=== PATIENT | male | born 2000 | race Caucasian/White ===

== ENCOUNTER 2023-05-21 12:31 | Emergency (ER) | payer BC ==
[2023-05-21 13:08] LABS: Absolute Lymphocytes (CBC) 1.6 K/uL (0.7-4.9); Hematocrit 51.4 % (39.6-49.0); Lymphocytes % 14.3 % (15.3-44.8); MCV 87.1 fL (80-100); MPV 8.2 fL (7.6-11.3); Platelets 265 thou/uL (152-406); RBC Red Blood Cell Count 5.89 M/uL (4.33-5.43)
[2023-05-21 13:23] LABS: Albumin 4.2 g/dL (3.4-5.0); Bilirubin Total 0.5 mg/dL (0.2-1.0); Potassium 3.6 mEq/L (3.5-5.1); Protein, Total 7.8 g/dL (6.4-8.2)
[2023-05-21] MEDS ORDERED: FAMOTIDINE 20 MG/2 ML VIAL IV ONE (13:33)
[2023-05-21] MEDS ORDERED: NA CHLORIDE 0.9% 1,000 ML ONE (13:33)
[2023-05-21] MEDS ORDERED: ONDANSETRON 4 MG/2 ML VIAL ONE (13:33)
[2023-05-21] MEDS ORDERED: KETOROLAC 30 MG/ML INJ ONE (13:33)
--- NOTE | 2023-05-21 14:17 | RAD REPORT ---
EXAM DESCRIPTION: US - Abdomen Exam Limited - 05/21/2023 1:16 pm CLINICAL HISTORY: pain COMPARISON: No comparisons TECHNIQUE: Sonographic grayscale and color flow images of the right upper abdominal quadrant were obtained. FINDINGS: The gallbladder demonstrates no gallstones, but layering hyperechoic foci. No pericholecys tic fluid or gallbladder wall thickening. The common bile duct is prominent measuring 7 millimeter. The liver demonstrates no findings of intrahepatic biliary dilatation. IMPRESSION: Gallbladder sludge, may contain tiny calculi. Prominence of the common bile duct measuring 7 millimeter, without intrahepatic biliary ductal dilati on or sonographic evidence of choledocholithiasis. Please correlate with bilirubin levels.
--- NOTE | 2023-05-21 16:08 | ER ---
Nurse's Notes [facility] Name: Kermit Bello Age: 23 yrs Sex: Male : 2000 Arrival Date: 05/21/2023 Time: 12:31 Bed 13 Private MD: Diagnosis: Upper abdominal pain, unspecified Presentation: 05/21 12:43 Chief complaint: Patient states: "I have this stabbing pain in my upper abdomen, and mb9 N/V that started last Tuesday. I went to [facility] and they didn't find anything". Coronavirus screen: Vaccine status: Patient reports being unvaccinated. Ebola Screen: No symptoms or risks identified at this time. Initial Sepsis Screen: Does the patient meet any 2 criteria? No. Patient's initial sepsis screen is negative. Does the patient have a suspected source of infection? No. Patient's initial sepsis screen is negative. Risk Assessment: Do you want to hurt yourself or someone else? Patient reports no desire to harm self or others. Onset of symptoms was May 21, 2023. 12:43 Method Of Arrival: Ambulatory mb9 12:43 Acuity: JARETH 3 mb9 Triage Assessment: 12:44 General: Appears in no apparent distress. Behavior is calm, cooperative. Pain: mb9 Complains of pain in abdomen Pain does not radiate. Pain currently is 10 out of 10 on a pain scale. Quality of pain is described as pressure, throbbing, Pain began suddenly. Neuro: [place] Cruz Agitation-Sedation Scale (RASS): 0 - Alert and Calm Level of Consciousness is awake, alert, obeys commands, Oriented to person, place, time, situation, Appropriate for age. Cardiovascular: Patient's skin is warm and dry. Respiratory: Airway is patent Respiratory effort is even, unlabored, Respiratory pattern is regular, symmetrical, Breath sounds are clear bilaterally. GI: Abdomen is round non-distended, Reports nausea, vomiting. Derm: Skin is pink, warm \\T\\ dry. Musculoskeletal: Range of motion: intact in all extremities. Historical: - Allergies: 12:44 No Known Allergies; mb9 - Home Meds: 12:44 None [Active]; mb9 - PMHx: 12:44 None; mb9 - PSHx: 12:44 None; mb9 - Immunization history:: Adult Immunizations up to date. - Social history:: Smoking status: Patient denies any tobacco usage or history of. Screenin:37 [facility] ED Fall Risk Assessment (Adult) History of falling in the last 3 months, kc6 including since admission No falls in past 3 months (0 pts) Confusion or Disorientation No (0 pts) Intoxicated or Sedated No (0 pts) Impaired Gait No (0 pts) Mobility Assist Device Used No (0 pt) Altered Elimination No (0 pt) Score/Fall Risk Level 0 - 2 = Low Risk. Abuse screen: Denies threats or abuse. Denies injuries from another. Nutritional screening: No deficits noted. Tuberculosis screening: No symptoms or risk factors identified. Assessment: 13:35 General: Appears in no apparent distress. uncomfortable, Behavior is calm, cooperative, kc6 appropriate for age. Pain: Complains of pain in epigastric area, right upper quadrant and left upper quadrant Pain does not radiate. Neuro: Level of Consciousness is awake, alert, obeys commands, Oriented to person, place, time, situation, Appropriate for age. Cardiovascular: Capillary refill < 3 seconds. Respiratory: Airway is patent Trachea midline Respiratory effort is even, unlabored, Respiratory pattern is regular, symmetrical. GI: Abdomen is flat, non-distended, Last BM was May 14, 2023. Bowel sounds present X 4 quads. Abd is soft X 4 quads Abdomen is tender to palpation in epigastric area, right upper quadrant and left upper quadrant Reports constipation, nausea, vomiting, Patient currently denies diarrhea. : No signs and/or symptoms were reported regarding the genitourinary system. EENT: No signs and/or symptoms were reported regarding the EENT system. Derm: No signs and/or symptoms reported regarding the dermatologic system. Skin is intact, is healthy with good turgor, Skin is pink, warm \\T\\ dry. Musculoskeletal: No signs and/or symptoms reported regarding the musculoskeletal system. Circulation, motion, and sensation intact. Capillary refill < 3 seconds, Range of motion: intact in all extremities. 14:43 Reassessment: Patient appears in no apparent distress at this time. No changes from kc6 previously documented assessment. Patient and/or family updated on plan of care and expected duration. Pain level reassessed. Patient is alert, oriented x 3, equal unlabored respirations, skin warm/dry/pink. 15:30 Reassessment: Patient appears in no apparent distress at this time. No changes from kc6 previously documented assessment. Patient and/or family updated on plan of care and expected duration. Pain level reassessed. Patient is alert, oriented x 3, equal unlabored respirations, skin warm/dry/pink. Vital Signs: 12:43 BP 164 / 101; Pulse 81; Resp 18; Temp 98.5; Pulse Ox 100% on R/A; Weight 99.79 kg; mb9 Height 6 ft. 0 in. ; Pain 10/10; 13:37 BP 152 / 95; Pulse 61; Resp 18 S; Pulse Ox 100% on R/A; kc6 14:43 BP 142 / 71; Pulse 64; Resp 16 S; Pulse Ox 100% on R/A; kc6 15:30 BP 135 / 70; Pulse 61; Resp 16 S; Pulse Ox 100% on R/A; kc6 12:43 Body Mass Index 29.84 (99.79 kg, 182.88 cm) mb9 12:43 Pain Scale: Adult mb9 ED Course: 12:33 Patient arrived in ED. ts1 12:40 Aleisha Escudero [facility]-C [facility]. kb 12:40 Jose Espinosa MD is Attending Physician. kb 12:44 Triage completed. mb9 12:44 Arm band placed on. mb9 12:59 Amanda Drake, RN is Primary Nurse. kc6 13:00 Inserted saline lock: 20 gauge in right forearm, using aseptic technique. Blood ds4 collected. 13:18 Abdomen Exam Limited In Process Unspecified. EDMS 13:37 Patient has correct armband on for positive identification. Bed in low position. Call kc6 light in reach. Side rails up X 1. 16:23 No provider procedures requiring assistance completed. IV discontinued, intact, kc6 bleeding controlled, No redness/swelling at site. Pressure dressing applied. Administered Medications: 13:34 Drug: NS 0.9% IV 1000 ml Route: IV; Rate: 1 bolus; Site: right forearm; kc6 15:24 Follow up: Response: No adverse reaction; IV Status: Completed infusion; IV Intake: kc6 1000ml 13:34 Drug: TORadol - Ketorolac IVP 15 mg Route: IVP; Site: right forearm; kc6 15:24 Follow up: Response: No adverse reaction; Pain is decreased kc6 13:34 Drug: Ondansetron IVP 4 mg Route: IVP; Site: right forearm; kc6 15:24 Follow up: Response: No adverse reaction; Nausea is decreased kc6 13:35 Drug: Famotidine IVP 20 mg Route: IVP; Site: right forearm; kc6 15:24 Follow up: Response: No adverse reaction kc6 Medication: 16:23 VIS not applicable for this client. kc6 Intake: 15:24 IV: 1000ml; Total: 1000ml. kc6 Outcome: 16:07 Discharge ordered by . brianne 16:23 Discharged to home ambulatory. kc6 16:23 Condition: improved 16:23 Discharge instructions given to patient, Instructed on discharge instructions, follow up and referral plans. medication usage, Demonstrated understanding of instructions, follow-up care, medications, Prescriptions given X 2. 16:23 Patient left the ED. kc6 Signatures: Dispatcher [employer] EDMS Aleisha Escudero, JOVANNIC [employer] PRESS OPERATOR-CkEduardo Nieves ds4 Amanda Drake RN RN kc6 Devorah Luna RN RN mb9 Katerin Sosa, PAS PAS ts1 Corrections: (The following items were deleted from the chart) 12:45 12:43 Pulse 81bpm; Resp 18bpm; Pulse Ox 100% RA; Temp 98.5F; 99.79 kg; Height 6 ft. 0 mb9 in.; BMI: 29.8; Pain 10/10, Adult; mb9
--- NOTE | 2023-05-21 16:08 | EDPHYS ---
Physician Documentation [facility] Name: Kermit Bello Age: 23 yrs Sex: Male : 2000 Arrival Date: 05/21/2023 Time: 12:31 Bed 13 Private MD: ED Physician Jose Espinosa HPI: 05/21 13:52 This 23 yrs old Male presents to ER via Ambulatory with complaints of Abdominal Pain, kb Stabbing pain in upper stomach. 13:52 The patient presents with abdominal pain in the upper abdomen. Onset: The kb symptoms/episode began/occurred 1 week(s) ago. The symptoms do not radiate. Associated signs and symptoms: Pertinent positives: nausea and vomiting, Pertinent negatives: diarrhea, fever. The symptoms are described as sharp. Modifying factors: The symptoms are alleviated by nothing, the symptoms are aggravated by nothing. Severity of pain: At its worst the pain was moderate in the emergency department the pain is unchanged. The patient has not experienced similar symptoms in the past. The patient has been recently seen by a physician:. 13:54 Pt reports upper abd pain for one week. Was seen at [place] [facility] 5 days ago for similar kb symptoms and discharged home. . Historical: - Allergies: 12:44 No Known Allergies; mb9 - Home Meds: 12:44 None [Active]; mb9 - PMHx: 12:44 None; mb9 - PSHx: 12:44 None; mb9 - Immunization history:: Adult Immunizations up to date. - Social history:: Smoking status: Patient denies any tobacco usage or history of. ROS: 13:52 Constitutional: Negative for fever, chills, and weight loss. kb 13:52 Abdomen/GI: Positive for abdominal pain, nausea and vomiting. 13:52 All other systems are negative. Exam: 13:52 Constitutional: This is a well developed, well nourished patient who is awake, alert, kb and in no acute distress. Head/Face: Normocephalic, atraumatic. ENT: Moist Mucous membranes Cardiovascular: Regular rate and rhythm with a normal S1 and S2. No gallops, murmurs, or rubs. No pulse deficits. Respiratory: Respirations even and unlabored. No increased work of breathing. Talking in full sentences Skin: Warm, dry with normal turgor. Normal color. MS/ Extremity: Pulses equal, no cyanosis. Neurovascular intact. Full, normal range of motion. Neuro: Awake and alert, GCS 15, oriented to person, place, time, and situation. Moves all extremities. Normal gait. 13:52 Abdomen/GI: Inspection: abdomen appears normal, Bowel sounds: normal, Palpation: soft, in all quadrants, moderate abdominal tenderness, in the right upper quadrant and left upper quadrant. Vital Signs: 12:43 BP 164 / 101; Pulse 81; Resp 18; Temp 98.5; Pulse Ox 100% on R/A; Weight 99.79 kg; mb9 Height 6 ft. 0 in. ; Pain 10/10; 13:37 BP 152 / 95; Pulse 61; Resp 18 S; Pulse Ox 100% on R/A; kc6 14:43 BP 142 / 71; Pulse 64; Resp 16 S; Pulse Ox 100% on R/A; kc6 15:30 BP 135 / 70; Pulse 61; Resp 16 S; Pulse Ox 100% on R/A; kc6 12:43 Body Mass Index 29.84 (99.79 kg, 182.88 cm) mb9 12:43 Pain Scale: Adult mb9 MDM: 12:41 Patient medically screened. kb 13:54 Differential diagnosis: cholecystitis, Cholelithiasis, gastritis, gastroesophageal kb reflux disease, non-specific abd pain, pancreatitis, Peptic Ulcer Disease. Data reviewed: vital signs, nurses notes. 14:26 Management of patient was discussed with the following: Dr Espinosa, recommends kb outpatient follow up. Counseling: I had a detailed discussion with the patient and/or guardian regarding the historical points, exam findings, and any diagnostic results supporting the discharge/admit diagnosis, lab results, radiology results, the need for outpatient follow up, a general surgeon, a cross country coach, to return to the emergency department if symptoms worsen or persist or if there are any questions or concerns that arise at home. 05/21 13:05 Order name: Comprehensive Metabolic Panel; Complete Time: 13:39 EDUT 05/21 13:05 Order name: Lipase; Complete Time: 13:39 EDMS 05/21 13:05 Order name: CBC with Automated Diff; Complete Time: 13:18 EDMS 05/21 12:57 Order name: Abdomen Exam Limited; Complete Time: 14:20 EDUT 05/21 12:49 Order name: IV Saline Lock; Complete Time: 13:00 kb 05/21 12:49 Order name: Labs collected and sent; Complete Time: 13:00 kb Administered Medications: 13:34 Drug: NS 0.9% IV 1000 ml Route: IV; Rate: 1 bolus; Site: right forearm; kc6 15:24 Follow up: Response: No adverse reaction; IV Status: Completed infusion; IV Intake: kc6 1000ml 13:34 Drug: TORadol - Ketorolac IVP 15 mg Route: IVP; Site: right forearm; kc6 15:24 Follow up: Response: No adverse reaction; Pain is decreased kc6 13:34 Drug: Ondansetron IVP 4 mg Route: IVP; Site: right forearm; kc6 15:24 Follow up: Response: No adverse reaction; Nausea is decreased kc6 13:35 Drug: Famotidine IVP 20 mg Route: IVP; Site: right forearm; kc6 15:24 Follow up: Response: No adverse reaction kc6 Disposition Summary: 05/21/23 16:07 Discharge Ordered Location: Home kb Condition: Stable kb Diagnosis - Upper abdominal pain, unspecified kb Followup: kb - With: Emergency Department - When: As needed - Reason: Worsening of condition Followup: kb - With: Private Physician - When: 2 - 3 days - Reason: Recheck today's complaints, Continuance of care, Re-evaluation by your physician Discharge Instructions: - Discharge Summary Sheet kb - Abdominal Pain, Adult, [id number] kb Forms: - Medication Reconciliation Form kb - Thank You Letter kb - Antibiotic Education kb - Prescription Opioid Use kb - Patient Portal Instructions kb - Leadership Thank You Letter kb Prescriptions: - Zofran 4 mg Oral Tablet - take 1 tablet by ORAL route every 6 hours As needed; 12 tablet; Refills: 0, kb Product Selection Permitted - dicyclomine 20 mg Oral Tablet - take 1 tablet by ORAL route 4 times per day As needed; 20 tablet; Refills: 0, kb Product Selection Permitted Signatures: Dispatcher [employer] Aleisha Robin, JOVANNIC ECONOMIC DEVELOPMENT MANAGER-Amanda De Los Santos RN RN kc6 Devorah Luna RN RN mb9 Corrections: (The following items were deleted from the chart) 13:54 13:52 The patient has not recently seen a physician, kb kb 13:55 13:48 Abdomen Limited+US.RAD.BRZ ordered. EDMS EDMS 13:56 13:48 CBC+H.LAB.BRZ ordered. EDMS EDMS 13:56 13:48 COMPREHENSIVE METABOLIC PANEL+C.LAB.BRZ ordered. EDMS EDMS 13:56 13:48 LIPASE+C.LAB.BRZ ordered. EDMS EDMS
[2023-05-21 16:30] VITALS: TEMP 98.5; O2SAT 100
[2023-05-21 16:34] VITALS: BP 135/70
== END 2023-05-21 16:23 | disposition home or self-care (01) ==
LOC: ER 12:31
DX: R10.11 Right upper quadrant pain (principal); R10.12 Left upper quadrant pain; R11.2 Nausea with vomiting, unspecified
CPT/HCPCS: 96361; 85025; 36415; 83690; 80053; 76705; 96375; 96374; 99284; J2405; J7030